=== PATIENT | female | born 1985 | race African-American/Black ===

== ENCOUNTER → 2016-09-12 | Outpatient (CLI) | payer MEDICAID ==
[~2016-09-12] MED LIST: ATIVAN 0.50.5 MG/TAB PO; CIPRO 500MG TA500 MG PO; DEPO-PROVER150 MG/M1 IM; EC NAPROSYN375 MG PO; EFFEXOR XR75 MG/CAP PO; FLEXERIL 1010 MG/TAB PO; FLEXERIL10 MG PO; MACROBID 1100 MG/CAP PO; NO HOME MEDICATIONS; NORCO 325 MG-51 TAB PO; ULTRAM 50MG TAB50 MG PO; ZITHROMAX 250M250 MG PO
== END ==
LOC: SUN.DIA 16:25
DX: E11.65 Type 2 diabetes mellitus with hyperglycemia (principal); Z79.84 Long term (current) use of oral hypoglycemic drugs; Z68.43 Body mass index [BMI] 50.0-59.9, adult; Z71.3 Dietary counseling and surveillance; F17.210 Nicotine dependence, cigarettes, uncomplicated
CPT/HCPCS: G0108

== ENCOUNTER → 2017-05-03 | Outpatient (REF) | LOC: WSOH 08:02 → WSPT 09:00 | DX: Z02.89 Encounter for other administrative examinations (principal) ==

== ENCOUNTER → 2017-05-05 | Outpatient (REF) | LOC: WSOH 11:35 | DX: Z02.89 Encounter for other administrative examinations (principal) ==

== ENCOUNTER → 2017-05-05 | Outpatient (REF) | LOC: WSOH 08:04 | DX: Z02.89 Encounter for other administrative examinations (principal) ==

== ENCOUNTER → 2017-05-17 | Outpatient (REF) | LOC: WSOH 13:16 | DX: Z01.89 Encounter for other specified special examinations (principal) ==

== ENCOUNTER 2018-05-19 09:32 | Emergency (ER) | payer MEDICAID ==
[~2018-05-19] VITALS: Ht 170.2 cm; Wt 163.6 kg
[2018-05-19 09:33] VITALS: BP 138/96; TEMP 98.5
[2018-05-19] MEDS ORDERED: GLUCOPHAGE XR500 M1 PO (09:46)
[2018-05-19] MEDS ORDERED: PROTONIX 40MG T40 MG PO (09:47)
[2018-05-19] MEDS ORDERED: MEDROL 4MG DOSPA4 MG PO (11:16)
[2018-05-19 11:22] VITALS: PULSE 65
== END 2018-05-19 11:25 | disposition home or self-care (01) ==
LOC: COL.ER 09:32
DX: M54.16 Radiculopathy, lumbar region (principal); E11.9 Type 2 diabetes mellitus without complications; Z79.84 Long term (current) use of oral hypoglycemic drugs

== ENCOUNTER 2018-07-10 16:00 | Outpatient (RCR) | payer MEDICAID ==
[~2018-07-10 16:00] MED LIST changes: +GLUCOPHAGE XR500 M1 PO; +MEDROL 4MG DOSPA4 MG PO; +PROTONIX 40MG T40 MG PO
== END 2018-09-10 | disposition home or self-care (01) ==
LOC: MKS.ESL.PT
DX: M54.5 Low back pain (principal)

== ENCOUNTER → 2018-09-20 | Outpatient (CLI) | payer MEDICAID | LOC: COL.RAD 09-19 14:00 | DX: R51 Headache (principal) ==

== ENCOUNTER 2020-04-02 23:57 | Emergency (ER) | payer SELFPAY ==
[~2020-04-02] VITALS: Ht 170.2 cm; Wt 154.5 kg
[2020-04-03 00:09] VITALS: TEMP 97.2
[2020-04-03 01:40] VITALS: BP 146/88; PULSE 86
[2020-04-03] MEDS ORDERED: DOXYCYCLINE 10100 MG PO (02:18)
== END 2020-04-03 01:40 | disposition home or self-care (01) ==
LOC: COL.ER 23:57
DX: L03.114 Cellulitis of left upper limb (principal); E11.9 Type 2 diabetes mellitus without complications; Z79.84 Long term (current) use of oral hypoglycemic drugs; Z87.891 Personal history of nicotine dependence

== ENCOUNTER → 2020-08-10 | Outpatient (RCR) | payer OTHER ==
[~2020-08-10] MED LIST changes: +DOXYCYCLINE 10100 MG PO
== END | disposition still patient (30) ==
LOC: MKS.ESL.PT
DX: M54.5 Low back pain (principal)

== ENCOUNTER 2020-08-31 15:00 | Outpatient (RCR) | payer OTHER | END 2020-11-11 | disposition home or self-care (01) | LOC: MKS.ESL.PT | DX: M54.5 Low back pain (principal) ==

== ENCOUNTER 2020-09-23 11:46 | Emergency (ER) | payer OTHER ==
[~2020-09-23] VITALS: Ht 170.2 cm; Wt 147.7 kg
[2020-09-23 12:29] VITALS: BP 153/98; TEMP 98.4
[2020-09-23 15:27] VITALS: PULSE 87
== END 2020-09-23 15:25 | disposition home or self-care (01) ==
LOC: COL.ER 11:46
DX: R21 Rash and other nonspecific skin eruption (principal); Z88.0 Allergy status to penicillin; Z88.6 Allergy status to analgesic agent; Z88.3 Allergy status to other anti-infective agents; Z87.891 Personal history of nicotine dependence

== ENCOUNTER 2024-05-14 20:53 | Emergency (ER) | payer OTHER ==
[~2024-05-14] VITALS: Ht 170.2 cm; Wt 161.4 kg
[~2024-05-14 20:53] MED LIST changes: -ALBENZA200 M1 PO; -PEPCID40 MG PO; -STROMECTOL3 MG PO
[2024-05-14 20:58] VITALS: TEMP 98.8
[2024-05-14] MEDS ORDERED: Ondansetron 4 MG/2 ML VIAL IV ONE (21:30)
[2024-05-14 21:51] LABS: BASO % 0.3 % (0.0-2.0); EOS # 0.1 K/mm3 (0.0-0.7); EOS % 1.4 % (0.0-4.0); GRAN # 2.4 K/mm3 (1.4-6.5); GRAN % 42.5 % (42.2-75.2); HEMATOCRIT 42.7 % (37.0-47.0); HEMOGLOBIN 14.2 g/dl (12.5-16.0); LYMPH # 2.7 K/mm3 (1.2-3.4); LYMPH % 47.3 % (20.0-51.0); MEAN CELL VOLUME 86 fl (80.0-100.0); MEAN CORPUSCULAR HEMOGLOBIN 29 pg (27-31); MEAN CORPUSCULAR HGB CONC 33 g/dl (33.0-37.0); MEAN PLATELET VOLUME 9.3 fl (7.4-10.4); MONO # 0.5 K/mm3 (0.1-0.6); MONO % 8.3 % (1.7-9.3); PLATELET COUNT 216 K/mm3 (130-400); RED BLOOD COUNT 4.95 M/mm3 (4.10-5.30); REDCELL DISTRIBUTION WIDTH-CV 12.6 % (11.5-14.5)
[2024-05-14 22:11] LABS: ALBUMIN 4.1 g/dL (3.5-5.0); BILIRUBIN,TOTAL 0.4 mg/dL (0.2-1.2); CALCIUM 9.6 mg/dL (8.4-10.2); CREATININE, serum 0.96 mg/dL (0.57-1.11); TOTAL PROTEIN 7.6 g/dl (6.2-8.1)
[2024-05-14 22:16] LABS: TROPONIN-I 0.01 ng/mL (0.00-0.033)
[2024-05-14] MEDS ORDERED: Iohexol 300 - 100 ML VIAL IV ONE (22:35)
[2024-05-14] MEDS ORDERED: NS 100 ML IV ONE (22:36)
[2024-05-14] MEDS ORDERED: NS 1,000 ML IV ONE (22:45)
[2024-05-14] MEDS ORDERED: ALBENZA200 M1 PO (23:20)
[2024-05-14] MEDS ORDERED: STROMECTOL3 MG PO (23:23)
[2024-05-14] MEDS ORDERED: PEPCID40 MG PO (23:24)
[2024-05-14 23:38] VITALS: BP 159/100; PULSE 79
== END 2024-05-14 23:38 | disposition home or self-care (01) ==
LOC: COL.ER 20:53
PROVIDERS: Emergency Medicine
DX: K29.70 Gastritis, unspecified, without bleeding (principal); B82.0 Intestinal helminthiasis, unspecified; Z87.891 Personal history of nicotine dependence; Z91.040 Latex allergy status
CPT/HCPCS: J2405; J7030; Q9967

== ENCOUNTER → 2024-05-14 | Outpatient (CLI) | payer OTHER ==
[~2024-05-14] MED LIST changes: +ALBENZA200 M1 PO; +PEPCID40 MG PO; +STROMECTOL3 MG PO
== END ==
LOC: COL.RAD 09:37
DX: K76.0 Fatty (change of) liver, not elsewhere classified (principal); R10.2 Pelvic and perineal pain